=== PATIENT | female | born 1960 | race Caucasian/White ===

== ENCOUNTER 2017-02-18 18:25 | Emergency (ER) | payer MEDICAID ==
[~2017-02-18] VITALS: Ht 160 cm; Wt 54.4 kg
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
[2017-02-18] MEDS ORDERED: Norco 5mg/325mg tab ORAL ONE (19:30)
[2017-02-18] MEDS ORDERED: Morphine Sulfate 2mg/ml Inj IVP ONE (21:00)
[2017-02-18 21:24] LABS: BASOPHILS % (AUTO) 0.5 % (0.0-2.0); EOSINOPHILS % (AUTO) 0.3 % (0.0-3.0); LYMPHOCYTES % (AUTO) 22.9 % (20.0-45.0); MEAN CORPUSCULAR HEMOGLOBIN 30.8 PG (27.0-31.0); MEAN CORPUSCULAR HGB CONC 34.4 G/DL (32.0-36.0); MEAN CORPUSCULAR VOLUME 89 FL (80-99); MEAN PLATELET VOLUME 9.6 FL (6.5-10.1); MONOCYTES % (AUTO) 6.2 % (1.0-10.0); NEUTROPHILS % (AUTO) 70.2 % (45.0-75.0); PLATELET COUNT 124 K/UL (150-450); RED BLOOD COUNT 4.84 M/UL (4.20-5.40); RED CELL DISTRIBUTION WIDTH 12.5 % (11.6-14.8); WHITE BLOOD COUNT 11.1 K/UL (4.8-10.8)
[2017-02-18 21:38] LABS: INR 1.1 (0.9-1.1); PROTHROMBIN TIME 11.1 SEC (9.30-11.50)
[2017-02-18 21:44] LABS: ALANINE AMINOTRANSFERASE 36 U/L (3-33); ALBUMIN/GLOBULIN RATIO 1.3 (1.0-2.7); ANION GAP 11 (5-15); ASPARTATE AMINO TRANSFERASE 31 U/L (5-40); CALCIUM 9.5 mg/dL (8.6-10.2); CARBON DIOXIDE 27 mEQ/L (20-30); CHLORIDE 100 mEQ/L (98-107); CREATININE 0.7 mg/dL (0.5-0.9); GLOMERULAR FILTRATION RATE > 60 mL/min (>60); HEMOLYSIS 2; POTASSIUM 4.1 mEQ/L (3.4-4.9); SODIUM 138 mEQ/L (135-145); TOTAL PROTEIN 6.8 g/dL (6.6-8.7)
[2017-02-18 22:27] VITALS: BP 102/69
[2017-02-19] MEDS ORDERED: Morphine Sulfate 4mg/ml Inj IVP ONE
[2017-02-19 01:09] VITALS: BP 105/71
[2017-02-19 01:47] VITALS: BP 105/71
--- NOTE | 2017-02-19 12:21 | Diagnostic Imaging Report ---
Indication: Shortness of breath Technique: One view of the chest Comparison: none Findings: Lungs and pleural spaces are clear. Heart size is normal Impression: No acute process
--- NOTE | 2017-02-19 16:22 | Cardiology Report ---
APPROVED REPORT EKG Measurement Heart [id number] Normal sinus rhythm Nonspecific ST and T wave abnormality Abnormal ECG
--- NOTE | 2017-02-20 08:40 | Diagnostic Imaging Report ---
Indication: PAIN Technique: Noncontrast spiral acquisitions obtained through the pelvis. Multiplanar reconstructions generated. Total dose length product 37 mGycm. CTDIvol(s) 11 mGy. Dose reduction achieved using automated exposure control Comparison: None Findings: There is a minimally displaced subcapital fracture of the left femur. This is slightly rotated. No evidence of pelvic fracture. The sacrum is intact. The right hip is intact.. No significant soft tissue hematoma demonstrated. The pelvic viscera are unremarkable. Impression: Rotated, otherwise minimally displaced subcapital left femoral fracture. This agrees with the preliminary interpretation provided overnight by Dr. Jean The CT scanner at [facility] is accredited by the [employer] and the scans are performed using protocols designed to limit radiation exposure to as low as reasonably achievable to attain images of sufficient resolution adequate for diagnostic evaluation.
== END 2017-02-19 01:47 | disposition short-term general hospital (02) ==
LOC: EDBD 18:25 → EMR 19:08
DX: S72.012A Unspecified intracapsular fracture of left femur, initial encounter for closed fracture (principal); W05.0XXA Fall from non-moving wheelchair, initial encounter; Y92.89 Other specified places as the place of occurrence of the external cause; Z88.0 Allergy status to penicillin; Z91.010 Allergy to peanuts; F32.9 Major depressive disorder, single episode, unspecified; M19.90 Unspecified osteoarthritis, unspecified site
CPT/HCPCS: 36415; 71010; 72192; 80053; 85025; 85610; 85730; 86850; 86900; 86901; 93005; 96374; 96375; 99284; J2270

== ENCOUNTER 2018-07-01 20:31 | Emergency (ER) | payer MEDICARE, BC, MEDICAID ==
[~2018-07-01] VITALS: Ht 162.6 cm; Wt 61.2 kg
[2018-07-01 21:00] VITALS: BP 120/80
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
[2018-07-01 23:00] VITALS: BP 126/96
--- NOTE | 2018-07-02 09:43 | Diagnostic Imaging Report ---
Indication: Neck pain, status post fall Technique: Spiral acquisitions obtained through the cervical spine. No IV contrast utilized. Multiplanar reconstructions were generated. Total dose length product 1585.08 mGycm. CTDIvol(s) 70.38,10.71 mGy. Dose reduction achieved using automated exposure control. Comparison: none Findings: Bony alignment is normal. No prevertebral soft tissue swelling. No acute fractures. No dislocations. Vertebral body heights are preserved. At C3-4, there is bilateral facet arthrosis. This results in mild narrowing of the left neural foramen. No significant disc bulge or protrusion or spinal stenosis. At C4-5 there is bilateral facet arthrosis. At C5-6, there is facet arthrosis on the left. No significant disc bulge or protrusion, disc space narrowing, or spinal stenosis. At C6-7, there is degenerative disc narrowing.. There is mild narrowing of the neural foramen and on the right due to facet arthrosis. No significant disc bulge or protrusion or spinal stenosis. At the remaining disc levels, no significant disc bulge or protrusion, spinal stenosis, or neural foraminal narrowing Included extra spinal soft tissues are unremarkable. The upper aerodigestive tract is unremarkable. Impression: Minimal degenerative changes as described. No acute bony trauma This agrees with the preliminary interpretation provided overnight by [facility] teleradiology service. The CT scanner at [facility] is accredited by the [employer] and the scans are performed using protocols designed to limit radiation exposure to as low as reasonably achievable to attain images of sufficient resolution adequate for diagnostic evaluation.
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
== END 2018-07-01 23:00 | disposition home or self-care (01) ==
LOC: EDBD 20:31 → EMR 21:00
DX: S00.93XA Contusion of unspecified part of head, initial encounter (principal); W19.XXXA Unspecified fall, initial encounter; Y92.129 Unspecified place in nursing home as the place of occurrence of the external cause; R51 Headache; Z88.0 Allergy status to penicillin; Z91.010 Allergy to peanuts; M47.812 Spondylosis without myelopathy or radiculopathy, cervical region; Z98.890 Other specified postprocedural states
CPT/HCPCS: 70450; 72125; 99284